=== PATIENT | female | born 1945 | race Caucasian/White ===

== ENCOUNTER 2017-04-14 12:44 | Emergency (ER) | payer MEDICARE, OTHER ==
[~2017-04-14] VITALS: Ht 167.6 cm; Wt 78.2 kg
[~2017-04-14 12:44] MED LIST: ASCO1TAB39 PO; BIOTIN; CHOL200025 PO; FLC50T PO; KRIL1CAP21 PO; LEVO112T4 PO; LORA-302 PO; METO25TA99 PO; OMEG-15 PO; RIVA20TA PO; SULF1TAB7 PO; [UNRECOGNIZED DRUG - OTHER]
[2017-04-14 12:54] VITALS: BP 130/86; PULSE 91; RESP 21; O2SAT 98
--- NOTE | 2017-04-14 12:55 | ED.REPORT ---
HPI-Chest Pain 40 and Over Date of Service Apr 14, 2017 ED Provider: Dr. Lopez The pt is a 72 y/o female with a hx of A-fib (last episode in Aug, 2015) and skin cancer who presents to the ED as advised by Dr. Thibodeaux over the phone after she woke up with A-fib this morning. The pt has been taking Eliquis for the last week and a half. Associated sx include fatigue and mild shortness of breath. She denies chest pain and any other symptoms at this time. Nursing Notes Stated Complaint: A-FIB Chief Complaint: Dysrhythmia/Cardiac Nursing Notes Reviewed: Yes Allergies: Coded Allergies: No Known Allergies (Unverified Allergy, Unknown, 02/14/16) Scheduled Ascorbic Acid/Vitamin E/Biotin (Hair Skin Nails-Biotin Gummies) 1 Each Tab.chew 1 EACH PO DAILY Cholecalciferol (Vitamin D3) (Vitamin D3) 2,000 Unit Tablet 2,000 UNIT PO DAILY Flecainide Acetate (Flecainide Acetate) 50 Mg Tablet 50 MG PO BID Krill/Om-3/Dha/Epa/Phospho/Ast (Megared [place]-3 Krill Oil Sfgl) 300-90-24 Capsule 1 EACH PO DAILY Levothyroxine (Levothyroxine) 112 Mcg Tablet 112 MCG PO DAILY Metoprolol Succinate ER (Metoprolol Succinate ER) 25 Mg Tab.er.24h 50 MG PO DAILY [place]-3/Dha/Epa/Fish Oil (Fish Oil 1,400 mg Softgel) 1 Each Capsule.dr 1 EACH PO DAILY Rivaroxaban (Xarelto) 20 Mg Tablet 20 MG PO DAILY Sulfamethoxazole/Trimeth 800-160 mg (Bactrim DS) 1 Each Tablet 1 TABLET PO BID Scheduled PRN Lorazepam (Ativan) 0.5 Mg Tablet 0.5 MG PO TID PRN PRN For Anxiety Miscellaneous Medications ([biotin 5,000+mvit]) 1 General Time Seen by MD: 12:55 Chief Complaint Other (A-fib) Hx Obtained From: Patient Arrived By: Walk-in Sudden in Onset?: Yes Onset Occurred: 5 - 8 hours ago Symptom Duration: Since onset Severity: Current: No pain currently Severity: Maximum: No pain Recent Healthcare: No recent doctor visit Past Medical History Past Medical History Melanoma groin area 1991 Arrhythmia Multiple Skin cancers Past Surgical History Denies Family History Mother of [place] at 72 Smoking History Never Smoker Social History Alcohol Use: Denies alcohol use Drug Use: Denies drug use Other Social History: Good social support, Ambulatory Status Independent Review of Systems Reports: A-fib Constitutional: Reports: Fatigue Respiratory: Reports: Shortness of breath (mild) Cardiovascular: Denies: Chest pain Complete sys rev & neg: except as marked. Physical Exam Initial Vital Signs Vital Signs (First) Date Time Temp Pulse Resp B/P Pulse Ox O2 Delivery O2 Flow Rate FiO2 04/14/17 12:54 36.5 91 21 130/86 98 Room Air Initial VS: Reviewed Head / Eyes: Atraumatic, Normocephalic Neck: Supple, Non-tender, Full range of motion Extremities: Vascular intact, Neuro intact, No swelling, No tenderness Skin: Warm, Dry, No cyanosis Neurologic: Alert, Oriented, Nonfocal General/Constitutional: Awake, Alert Respiratory / Chest: Atraumatic, Breath sounds NL, Breath sounds = bilat, No respiratory distress, No rales, No rhonchi, No wheezing Cardiovascular: Heart rate NL, Heart sounds NL, No gallop, No murmurs, No rubs Heart Rate / Rhythm: Positive: Irreg irregular rhythm Abdomen: Atraumatic, Soft, Non-tender, No guarding, No rebound Interpretation & Diagnostics Lab Results Interpretation Result Diagram: 04/14/17 1311 04/14/17 1311 Test 04/14/17 13:11 White Blood Count 8.8th/mm3 (3.8-10.1) Red Blood Count 4.73mil/mm3 (3.90-5.20) Hemoglobin 15.7g/dL (12.0-15.6) Hematocrit 44.4% (35.0-46.0) Mean Corpuscular Volume 93.9fL (81-100) Mean Corpuscular Hemoglobin 33.2pg (27.0-35.0) Mean Corpuscular Hemoglobin Concent 35.4% (32.0-37.0) Red Cell Distribution Width 13.2% (12.3-15.4) Platelet Count 210bil/L (150-400) Neutrophils (%) (Auto) 55.4% (40-74) Lymphocytes (%) (Auto) 29.3% (14-46) Monocytes (%) (Auto) 11.6% (4-12) Eosinophils (%) (Auto) 2.3% (0-5) Basophils (%) (Auto) 0.9% (0-3) Sodium Level 142mEq/L (134-144) Potassium Level 3.9mEq/L (3.5-5.2) Chloride Level 104mEq/L (97-108) Carbon Dioxide Level 23mmol/L (18-29) Blood Urea Nitrogen 15mg/dL (8-27) Creatinine 0.62mg/dL (0.57-1.00) Estimat Glomerular Filtration Rate 135mL/min (>59) Glucose Level 84mg/dL (60-99) Calcium Level 9.9mg/dL (8.5-10.1) Magnesium Level 2.3mg/dL (1.6-2.6) Total Bilirubin 0.5mg/dL (0.0-1.2) Aspartate Amino Transf (AST/SGOT) 21U/L (0-50) Alanine Aminotransferase (ALT/SGPT) 20U/L (0-32) Alkaline Phosphatase 104U/L (25-165) Total Protein 7.6g/dL (6.4-8.4) Albumin 4.3g/dL (3.4-5.0) ECG Interpretation ECG Interpretation: A-fib. Rate 95 Borderline repoll abnormality, diffuse leads Time: 13:09 Interpreted by: ED physician ECG Interpretation: Normal sinus rhythm. Rate 64. Borderline prolonged OR interval. Nonspecific T abnormalities, anterior leads. Time: 14:37 Interpreted by: ED physician Re-Eval/Medical Decision Med Decision/Clinical Course Atrial fibrillation on this, converted with flecainide. Patient is feeling better and will be discharged. Source of Hx: Old records Time of Eval: 14:27 Re-Evaluation/Progress Note: Rechecked pt. Discussed lab results. The pt understands. All questions answered. Time of Eval: 14:40 Re-Evaluation/Progress Note: Rechecked pt. Dicussed repeat ECG. Discussed diagnosis and plan to discharge after consulting Dr. Thibodeaux. Pt understands and agrees with the plan. F/U instruction and RTER warning given. All questions addressed. Consultation : Referral / Consult Name: Sally Thibodeaux MD Consulted With: Cardiology Call Returned at: 15:08 Community Services Manager: Will see in office, Agrees with eval, Agrees with plan Note: Recommends giving flecainide 50 BID and following up with Amber. A tele strip of conversion will be faxed to Dr. Thibodeaux. Counseled Regarding: Diagnosis, Lab results, Need for follow-up, When/why to return to ED Discharge & Departure Primary Impression: A-fib Atrial fibrillation type: unspecified Qualified Code: I48.91 - Unspecified atrial fibrillation Disposition: Home Discharge Condition All VS Reviewed: Yes Additional Instructions: Today in the ER you were in A. fib and this was treated with Flecainaide orally. Increase your Flecainaide to 50 mg twice daily. Continue metoprolol at 12.5 mg twice daily. Call Dr. Thibodeaux for a follow-up appointment. Return to the ER as needed for worsening symptoms. Referrals: Leonard Mehta MD (PCP) Sally Thibodeaux MDe Attestation Portions of this note were transcribed by Jeanne Boykin. I,, personally performed the history, physical exam and medical decision-making;I reviewed and confirmed the accuracy of the information in the transcribed note. Signed by Keila Vann. 04/14/17 copies to: Leonard Mehta MD; Sally Thibodeaux MD, Timothy S DO Apr 14, 2017 12:55 Jeanne Boykin Apr 14, 2017 13:07
[2017-04-14 13:33] LABS: BASOPHILS % (AUTO) 0.9 % (0-3); EOSINOPHILS % (AUTO) 2.3 % (0-5); MONOCYTES % (AUTO) 11.6 % (4-12); Mean Corpuscular Hemoglobin 33.2 pg (27.0-35.0); Mean Corpuscular Volume 93.9 fL (81-100); NEUTROPHILS % (AUTO) 55.4 % (40-74); Platelet Count 210 bil/L (150-400)
[2017-04-14 13:53] LABS: Magnesium 2.3 mg/dL (1.6-2.6)
[2017-04-14 14:27] VITALS: BP 142/91; PULSE 97; RESP 17; O2SAT 98
[2017-04-14 16:14] VITALS: BP 127/62; PULSE 64; RESP 13; O2SAT 96
== END 2017-04-14 16:14 | disposition home or self-care (01) ==
LOC: SED 12:44
DX: I48.91 Unspecified atrial fibrillation (principal); C44.99 Other specified malignant neoplasm of skin, unspecified